=== PATIENT | female | born 1965 | race African-American/Black ===

== ENCOUNTER 2016-05-31 19:17 | Emergency (ER) | payer MEDICAID | END 2016-05-31 23:02 | disposition home or self-care (01) | LOC: ER 19:17 | CPT/HCPCS: 36415; 80053; 81001; 84439; 84443; 85025; 85610 ==

== ENCOUNTER 2016-06-16 19:34 | Emergency (ER) | payer MEDICAID | END 2016-06-16 22:20 | disposition home or self-care (01) | LOC: ER 19:34 | DX: F20.3 Undifferentiated schizophrenia (principal); F17.200 Nicotine dependence, unspecified, uncomplicated | CPT/HCPCS: 36415; 80053; 80307; 80320; 80329; 81001; 84439; 84443; 85025; 85610; 87088 ==